=== PATIENT | male | born 1955 | race American Indian/Alaskan Native ===

== ENCOUNTER 2017-03-08 03:23 | Emergency (ER) | payer OTHER, BC ==
--- NOTE | 2017-03-08 04:48 | Cat Scan Report ---
FINAL REPORT EXAM: CT HEAD/BRAIN WO CON HISTORY: HEADACHE TECHNIQUE: Routine axial imaging was obtained of the brain without IV contrast. FINDINGS: There is no evidence of acute stroke or hemorrhage. The ventricular system is appropriate in size and is symmetric. The sinuses reveal a 15 millimeter polyp/mucous retention cyst in the right maxillary sinus. The mastoid air cells well pneumatized. The calvarium appears intact IMPRESSION: No evidence of acute stroke or hemorrhage. Mucous retention cyst/polyp in the right maxillary sinus.
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
[2017-03-08 05:41] VITALS: BP 153/95
[2017-03-08] MEDS: TYLENOL PO ONE (05:41)
== END 2017-03-08 05:42 | disposition home or self-care (01) ==
LOC: ED 03:23
DX: S06.0X0S Concussion without loss of consciousness, sequela (principal); V49.49XA Driver injured in collision with other motor vehicles in traffic accident, initial encounter; Y93.9 Activity, unspecified; Y92.9 Unspecified place or not applicable; Y99.9 Unspecified external cause status; J45.909 Unspecified asthma, uncomplicated; I10 Essential (primary) hypertension
CPT/HCPCS: 70450

== ENCOUNTER 2021-04-07 22:32 | Emergency (ER) | payer BC ==
[2021-04-08] MEDS ORDERED: oxyCODONE /ACETAMINOPHEN 5-325MG TAB PO ONE (00:07)
--- NOTE | 2021-04-08 00:16 | Emergency Department Report ---
ED Extremity Problem HPI - General Chief complaint: Extremity Injury, Lower Stated complaint: HIP PAIN Time Seen by Provider: 04/07/21 23:39 Source: patient Mode of arrival: Wheelchair Limitations: No Limitations - History of Present Illness Initial comments: 65-year-old male presents to ED with left hip pain earlier today. Patient states this morning he was feeling fine. States he always walked around without any issues. Patient states when he got home he sat down to work on the computer. Patient states when he attempted to get up, he experienced pain in the left hip. Patient states he has been having pain since. States he is unable to bear weight on the left side. Patient denies any trauma or fall. He denies swelling. Patient states his pain is on the outside of the hip and also in the inner groin area as well. Patient had hip replacement surgery 1 month ago at [facility]. Complaint: extremity pain -: This afternoon Location: left, lower extremity Radiation: none Severity scale (0 -10): 10 Quality: aching Consistency: constant Improves with: immobilization Worsens with: weight bearing, palpation Associated Symptoms: denies: fever - Related Data Home Medications Medication Instructions Recorded Confirmed Last Taken Advair 250-50 Diskus 1 puff PO DAILY 03/08/17 03/08/17 Unknown Aspirin BABY CHEW TAB 1 tab PO DAILY 03/08/17 03/08/17 Unknown Clonidine 0.3 mg PO DAILY 03/08/17 03/08/17 Unknown Pravastatin 20 mg PO HS 03/08/17 03/08/17 Unknown Valsartan-Hctz 320-25 mg Tab 1 tab PO DAILY 03/08/17 03/08/17 Unknown Previous Rx's Medication Instructions Recorded Last Taken Type Naproxen [Naprosyn] 500 mg PO BID #20 tablet 04/08/21 Unknown Rx oxyCODONE /ACETAMINOPHEN [Percocet 1 tab PO Q6HR PRN #7 tablet 04/08/21 Unknown Rx 5/325] Allergies Allergy/AdvReac Type Severity Reaction Status Date / Time No Known Allergies Allergy Verified 04/07/21 22:39 ED Review of Systems ROS: Stated complaint: HIP PAIN Other details as noted in HPI Comment: All other systems reviewed and negative Constitutional: denies: fever Musculoskeletal: as per HPI ED Past Medical Hx - Past Medical History Hx Hypertension: Yes Hx Asthma: Yes Additional medical history: High Cholesterol - Surgical History Additional Surgical History: Spleenectomy, MULTIPLE HARDWARE IN EXTREMITIES. - Social History Smoking Status: Never Smoker Substance Use Type: None - Medications Home Medications: Home Medications Medication Instructions Recorded Confirmed Last Taken Type Advair 250-50 Diskus 1 puff PO DAILY 03/08/17 03/08/17 Unknown History Aspirin BABY CHEW TAB 1 tab PO DAILY 03/08/17 03/08/17 Unknown History Clonidine 0.3 mg PO DAILY 03/08/17 03/08/17 Unknown History Pravastatin 20 mg PO HS 03/08/17 03/08/17 Unknown History Valsartan-Hctz 320-25 mg Tab 1 tab PO DAILY 03/08/17 03/08/17 Unknown History Naproxen [Naprosyn] 500 mg PO BID #20 tablet 04/08/21 Unknown Rx oxyCODONE /ACETAMINOPHEN [Percocet 1 tab PO Q6HR PRN #7 tablet 04/08/21 Unknown Rx 5/325] ED Physical Exam - General Limitations: No Limitations General appearance: alert, in no apparent distress - Head Head exam: Present: atraumatic, normocephalic - Eye Eye exam: Present: normal appearance, EOMI - ENT ENT exam: Present: mucous membranes moist - Neck Neck exam: Present: normal inspection - Respiratory Respiratory exam: Present: normal lung sounds bilaterally. Absent: respiratory distress - Cardiovascular Cardiovascular Exam: Present: regular rate, normal rhythm - GI/Abdominal GI/Abdominal exam: Present: soft. Absent: distended, tenderness - Extremities Exam Extremities exam: Present: tenderness (Tenderness to the lateral aspect of the left hip; no bruising or swelling present; incision site appears well-healed; slight tenderness to the medial left thigh) - Neurological Exam Neurological exam: Present: alert, oriented X3. Absent: motor sensory deficit - Psychiatric Psychiatric exam: Present: normal affect, normal mood - Skin Skin exam: Present: warm, dry, intact, normal color ED Course Vital Signs 04/07/21 04/08/21 22:34 02:36 Temperature 98.1 F Pulse Rate 77 71 Respiratory 18 14 Rate Blood Pressure 96/75 119/87 [Right] O2 Sat by Pulse 97 97 Oximetry ED Medical Decision Making - Radiology Data Radiology results: report reviewed, image reviewed - Medical Decision Making 65-year-old male with nontraumatic left hip pain. Patient had hip replacement surgery 1 month ago. Patient has some tenderness on exam, no swelling, erythema, or bruising. X-ray is unremarkable. Patient reported some pain in the medial aspect of his left thigh and groin, so ultrasound was done to rule out DVT. Ultrasound is negative for DVT. Patient advised to follow-up with his surgeon tomorrow. Vital signs are stable. Prescriptions given. Return precautions given. - Differential Diagnosis DVT, fracture, hardware loosening Critical care attestation.: If time is entered above; I have spent that time in minutes in the direct care of this critically ill patient, excluding procedure time. ED Disposition Clinical Impression: Left hip pain Disposition: HOME / SELF CARE / HOMELESS Is pt being admited?: No Condition: Stable Instructions: Hip Pain Prescriptions: Naproxen [Naprosyn] 500 mg PO BID #20 tablet oxyCODONE /ACETAMINOPHEN [Percocet 5/325] 1 tab PO Q6HR PRN #7 tablet PRN Reason: Pain Referrals: PRIMARY CARE, [Primary Care Provider] - [facility] Forms: Work/School Release Form(ED) Time of Disposition: 02:50
--- NOTE | 2021-04-08 01:06 | XRay Report ---
LEFT HIP 2 VIEWS INDICATION / CLINICAL INFORMATION: Left hip pain. Left hip surgery in February. COMPARISON: None available. FINDINGS: BONES / JOINT(S): There is a left hip prosthesis. There is internal fixation of the right hemipelvis. There are moderate degenerative changes involving the right hip. There is mild lower lumbar spondylo sis. I see no evidence of acute fracture, dislocation or destructive lesion. SOFT TISSUES: No significant abnormality. ADDITIONAL FINDINGS: None. Signer Name: Zackary Mims MD Signed: 04/08/2021 1:02 AM Workstation Name: [id number]
--- NOTE | 2021-04-08 02:22 | Vascular Lab Report ---
DUPLEX DOPPLER LOWER EXTREMITY VEINS, LEFT INDICATION / CLINICAL INFORMATION: Left leg pain. TECHNIQUE: Duplex doppler imaging was performed through the veins of the left lower extremity using venous compr ession and other maneuvers. COMPARISON: None available. FINDINGS: LEFT COMMON FEMORAL VEIN: Negative. LEFT FEMORAL VEIN: Negative. LEFT POPLITEAL VEIN: Negative. LEFT CALF VEINS: Negative. ADDITIONAL FINDINGS: No abnormal mass or fluid collection is seen. IMPRESSION: No sonographic evidence for DVT in the left lower extremity. Signer Name: Zackary Mims MD Signed: 04/08/2021 2:18 AM Workstation Name: [id number]
[2021-04-08 02:37] VITALS: BP 119/87
== END 2021-04-08 03:40 | disposition home or self-care (01) ==
LOC: ED 22:32
DX: M25.552 Pain in left hip (principal); I10 Essential (primary) hypertension; J45.909 Unspecified asthma, uncomplicated
CPT/HCPCS: 99284